=== PATIENT | female | born 1990 | race Caucasian/White ===

== ENCOUNTER 2016-03-04 11:37 | Emergency (ER) | payer OTHER ==
[2016-03-04 12:05] VITALS: O2SAT 100
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
[2016-03-04] MEDS ORDERED: ZOFRAN ODT 4 MG PO ONE (12:33)
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
[2016-03-04] MEDS ORDERED: ZOFRAN ODT 4 MG ONE (12:52)
[2016-03-04] MEDS ORDERED: Norco 10/325 MG Tablet PO ONE (12:54)
[2016-03-04] MEDS ORDERED: Norco 10/325 MG Tablet ONE (13:00)
[2016-03-04 13:15] VITALS: BP 105/68; PULSE 71
== END 2016-03-04 13:15 | disposition home or self-care (01) ==
LOC: ED 11:37
DX: R51 Headache (principal); S16.1XXA Strain of muscle, fascia and tendon at neck level, initial encounter; S39.012A Strain of muscle, fascia and tendon of lower back, initial encounter; V47.5XXA Car driver injured in collision with fixed or stationary object in traffic accident, initial encounter; R11.0 Nausea; M54.2 Cervicalgia; M54.5 Low back pain
CPT/HCPCS: 70450; 72110; 72125; 99283; L0172; Q0162